=== PATIENT | female | born 2000 | race Caucasian/White ===

== ENCOUNTER → 2025-01-01 11:07 | Outpatient (REF) | payer OTHER, SELFPAY ==
[2025-01-01 15:50] LABS: Varicella Zoster IgG (VZV) Positive
== END ==
LOC: REG 11:07
PROVIDERS: ATTENDING PHYSICIAN Nurse Practitioner Family
DX: Z23 Encounter for immunization (principal)
CPT/HCPCS: 36415; 86480; 86706; 86787